=== PATIENT | female | born 2000 ===

== ENCOUNTER 2020-02-21 18:14 | Emergency (ER) | payer OTHER ==
[~2020-02-21] VITALS: Ht 160 cm; Wt 49.4 kg
[2020-02-21] MEDS ORDERED: ZOLOFT50 MG (18:58)
[2020-02-21] MEDS ORDERED: AMBIEN10 MG (18:58)
[2020-02-21] MEDS ORDERED: CLONAZEPAM1 M1 (18:58)
== END 2020-02-21 22:14 | disposition home or self-care (01) ==
LOC: ER 18:14
DX: J45.901 Unspecified asthma with (acute) exacerbation (principal); Z20.822 Contact with and (suspected) exposure to COVID-19; B96.0 Mycoplasma pneumoniae [M. pneumoniae] as the cause of diseases classified elsewhere

== ENCOUNTER 2020-09-06 16:40 | Emergency (ER) | payer OTHER ==
[~2020-09-06] VITALS: Ht 160 cm; Wt 44.5 kg
[~2020-09-06 16:40] MED LIST: AMBIEN10 MG; CLONAZEPAM1 M1; ZOLOFT50 MG
== END 2020-09-07 12:24 | disposition home or self-care (01) ==
LOC: ER 16:40
DX: E86.0 Dehydration (principal); F11.23 Opioid dependence with withdrawal; Z20.822 Contact with and (suspected) exposure to COVID-19